=== PATIENT | female | born 2000 | race Caucasian/White ===

== ENCOUNTER 2025-04-30 23:52 | Emergency (ER) | payer OTHER ==
[~2025-04-30] VITALS: Ht 157.5 cm; Wt 47.6 kg
[2025-05-01 00:57] LABS: APPEARANCE,URINE CLEAR (CLEAR); BLOOD, URINE 2+ Ery/uL (NEGATIVE); LEUKOCYTE ESTERASE ,URINE TRACE (NEGATIVE); NITRITE, URINE NEGATIVE (NEGATIVE); UGLUCOSE NEGATIVE (NEGATIVE)
[2025-05-01 01:09] LABS: ADD URINE CULTURE NO; SQUAMOUS EPITHELIAL CELL,UR 0-2 /HPF (None Seen)
[2025-05-01] MEDS ORDERED: NITR100C6 PO (02:04)
[2025-05-01] MEDS ORDERED: NITROFURANTOIN/MONOHYDRATE MACROCRYSTALS 100 MG CAPSULE ONE (02:07)
[2025-05-01] MEDS: NITROFURANTOIN/MONOHYDRATE MACROCRYSTALS 100 MG CAPSULE PO ONE (02:11)
[2025-05-01 02:17] VITALS: BP 102/62; TEMP 97.9; O2SAT 99
== END 2025-05-01 02:18 | disposition home or self-care (01) ==
LOC: ER 23:58
DX: N39.0 Urinary tract infection, site not specified (principal); Z88.0 Allergy status to penicillin
CPT/HCPCS: 81001; 87086-TC